=== PATIENT | male | born 1990 | race Caucasian/White ===

== ENCOUNTER 2017-08-29 01:42 | Emergency (ER) | payer OTHER ==
[2017-08-29] MEDS: LORAZEPAM 2 MG INJ IV (02:19)
[2017-08-29] MEDS: SOD CHLORIDE 0.9% 1,000 ML IV (02:20)
[2017-08-29 02:35] LABS: ADD MAN DIFF? NO
[2017-08-29 02:36] LABS: BASOPHILS % 0.6 % (0.0-2.0); EOSINOPHILS # 0.1 10^3/ul (0.0-0.5); EOSINOPHILS % 0.8 % (0.0-7.0); HEMATOCRIT 46.8 % (42.0-52.0); HEMOGLOBIN 16.4 g/dl (14.0-18.0); LYMPHOCYTES # 2.2 10^3/ul (0.8-2.9); LYMPHOCYTES % 33.3 % (15.0-51.0); MEAN CORPUSCULAR HEMOGLOBIN 31.8 pg (29.0-33.0); MEAN CORPUSCULAR VOLUME 90.9 fl (82.0-101.0); MEAN PLATELET VOLUME 9.7 fl (7.4-10.4); MONOCYTE # 0.7 10^3/ul (0.3-0.9); MONOCYTES % 9.8 % (0.0-11.0); NEUTROPHIL # 3.7 10^3/ul (1.6-7.5); NEUTROPHILS % 55.3 % (39.0-77.0); PLATELET COUNT 259 10^3/UL (140-415); RED BLOOD COUNT 5.15 10^6/ul (4.70-6.10); RED CELL DISTRIBUTION WIDTH 11.9 % (11.5-14.5)
[2017-08-29 02:36] LABS: WHITE BLOOD COUNT 6.7 10^3/ul (4.8-10.8)
[2017-08-29 02:54] LABS: ANION GAP 21 (8-16); BLOOD UREA NITROGEN 8 mg/dl (7-20); CALCIUM 9.7 mg/dl (8.4-10.2); CARBON DIOXIDE 19 mmol/L (21-31); CHLORIDE 106 mmol/L (97-110); CREATININE 0.98 mg/dl (0.61-1.24); GLUCOSE 112 mg/dl (70-220); SODIUM 143 mmol/L (135-144)
[2017-08-29 03:05] LABS: TROPONIN-I < 0.010 ng/ml (0.000-0.120)
== END 2017-08-29 03:26 | disposition home or self-care (01) ==
LOC: E/R 01:42
DX: F14.10 Cocaine abuse, uncomplicated (principal); F10.10 Alcohol abuse, uncomplicated; R07.9 Chest pain, unspecified; F41.9 Anxiety disorder, unspecified; E87.6 Hypokalemia; R00.0 Tachycardia, unspecified; E87.2 Acidosis
CPT/HCPCS: 36415; 71045; 80048; 84484; 85025; 93005; 96374; 99285-25